=== PATIENT | male | born 1975 | race Caucasian/White ===

== ENCOUNTER 2025-04-17 10:10 | Emergency (ER) | payer OTHER ==
[~2025-04-17] VITALS: Ht 188 cm; Wt 121.1 kg
[2025-04-17 10:34] VITALS: BP 149/91; PULSE 82; RESP 16; TEMP 98.3; O2SAT 98
[2025-04-17 11:37] VITALS: BP 142/86; PULSE 82; RESP 16; TEMP 98.3; O2SAT 98
== END 2025-04-17 11:35 | disposition home or self-care (01) ==
LOC: ER 10:10
DX: K59.00 Constipation, unspecified (principal); I10 Essential (primary) hypertension; K21.9 Gastro-esophageal reflux disease without esophagitis
CPT/HCPCS: 74019; 99283